=== PATIENT | male | born 2005 | race Hispanic/Latino ===

== ENCOUNTER 2025-03-04 20:35 | Emergency (ER) | payer SELFPAY ==
[~2025-03-04] VITALS: Ht 165.1 cm; Wt 62.6 kg
[~2025-03-04 20:35] MED LIST: AMOXICILLIN500 MG PO; IBUPROFEN600 MG PO; ONDANSETRON ODT4 MG PO
[2025-03-04 20:40] VITALS: PULSE 60; RESP 16; TEMP 98.8
[2025-03-04] MEDS ORDERED: CEPHALEXIN500 MG PO (21:22)
[2025-03-04] MEDS ORDERED: NAPROSYN500 MG PO (21:22)
[2025-03-04 22:04] VITALS: BP 93/47; O2SAT 98
== END 2025-03-04 21:40 | disposition home or self-care (01) ==
LOC: FSED 20:42
DX: L08.9 Local infection of the skin and subcutaneous tissue, unspecified (principal); S91.312D Laceration without foreign body, left foot, subsequent encounter
CPT/HCPCS: 99284